=== PATIENT | female | born 1970 | race Two or more races ===

== ENCOUNTER 2016-12-25 19:53 | Emergency (ER) | payer MEDICAID ==
[~2016-12-25] VITALS: Ht 160 cm; Wt 68.0 kg
[2016-12-25 19:57] VITALS: BP 150/88
[2016-12-25] MEDS ORDERED: predniSONE 20 MG TABLET ONE (21:34)
[2016-12-25] MEDS ORDERED: predniSONE 20 MG TABLET PO ONE (22:00)
== END 2016-12-25 21:46 | disposition home or self-care (01) ==
LOC: ER 19:53
DX: T50.995A Adverse effect of other drugs, medicaments and biological substances, initial encounter (principal); I10 Essential (primary) hypertension; F41.9 Anxiety disorder, unspecified; Y92.9 Unspecified place or not applicable
CPT/HCPCS: 99283; A4606; J7512; Z7610

== ENCOUNTER 2017-08-11 16:37 | Emergency (ER) | payer MEDICAID ==
[~2017-08-11] VITALS: Ht 162.6 cm; Wt 72.6 kg
--- NOTE | 2017-08-11 16:45 | NUR ---
Pt states that she had gotten excited, feeling palpitations. Pt denies CP, SOB, dizziness, n/v, no other complaints, no distress noted. Pt placed on monitor.
[2017-08-11 17:01] VITALS: BP 142/69
--- NOTE | 2017-08-11 17:01 | NUR ---
Patient discharged to home in stable condition. Written and verbal after care instructions given. Patient verbalizes understanding of instruction.
== END 2017-08-11 17:11 | disposition home or self-care (01) ==
LOC: ER 16:38
DX: F44.5 Conversion disorder with seizures or convulsions (principal); F41.9 Anxiety disorder, unspecified; I10 Essential (primary) hypertension
CPT/HCPCS: 99283; A4606 ×2; Z7610 ×2

== ENCOUNTER 2017-09-30 19:46 | Emergency (ER) | payer MEDICAID ==
[~2017-09-30] VITALS: Ht 154.9 cm; Wt 71.7 kg
[2017-09-30 19:48] VITALS: BP 146/82
[2017-09-30] MEDS ORDERED: LORAZEPAM 0.5 MG TABLET PO ONE (20:00)
[2017-09-30] MEDS ORDERED: LORAZEPAM 1 MG TABLET ONE (20:31)
== END 2017-09-30 20:41 | disposition home or self-care (01) ==
LOC: ER 19:47
DX: F41.0 Panic disorder [episodic paroxysmal anxiety] (principal); I10 Essential (primary) hypertension
CPT/HCPCS: 99284; A4606; Z7610

== ENCOUNTER 2018-06-26 15:58 | Emergency (ER) | payer MEDICAID ==
[~2018-06-26] VITALS: Ht 154.9 cm; Wt 71.7 kg
--- NOTE | 2018-06-26 16:10 | NUR ---
PATIENT IS AAOX3, BIBRA 88 FROM HOME FOR SYNCOPAL EPISODE. PATIENT WAS HYPERVENTILATING AND NORMALLY HAPPENS DURING HER PERIOD PRIOR TO SYNCOPAL EPISODE. LACERATION TO POSTERIOR HEAD NOTED D/T FALL. RR IS EVEN AND UNLABORED WITH NAD NOTED. SKIN IS WARM AND DRY. PLACED ON THE MONITOR AND HOSPITAL GOWN. AWAITING MD FOR EVAL.
[2018-06-26 16:24] LABS: BASOPHILS # (AUTO) 0.1 /CMM (0.0-0.2); BASOPHILS % (AUTO) 1.9 % (0.0-2.0); EOSINOPHILS % (AUTO) 0.8 % (0.0-6.0); HEMATOCRIT 38 % (33-45); HEMOGLOBIN 12.5 g/dL (11.5-14.8); LYMPHOCYTES # (AUTO) 1.8 /CMM (0.8-4.8); LYMPHOCYTES % (AUTO) 23.8 % (20.0-44.0); MEAN CORPUSCULAR HEMOGLOBIN 29 PG (26.0-33.0); MEAN CORPUSCULAR HGB CONC 33 g/dl (31.0-36.0); MEAN CORPUSCULAR VOLUME 88 fL (82-100); MONOCYTES # (AUTO) 0.5 /CMM (0.1-1.30); NEUTROPHILS # (AUTO) 4.9 /CMM (1.8-8.9); NEUTROPHILS % (AUTO) 66.5 % (43.0-81.0); PLATELET COUNT (AUTO) 321 /CMM (150-450); RDW COEFFICIENT OF VARIATION 12.6 (11.5-15.0); RED BLOOD CELL COUNT(AUTO) 4.32 MIL/uL (4.0-5.2); WHITE BLOOD COUNT (AUTO) 7.4 K/uL (4.3-11.0)
[2018-06-26 16:31] LABS: CALCIUM, SERUM 9.3 mg/dL (8.5-10.1); CREATININE 0.9 mg/dL (0.6-1.3); POTASSIUM 3.5 mmol/L (3.5-5.1)
[2018-06-26] MEDS ORDERED: TDAP [DIPH/PERTUSSIS/TET] 0.5 ML VIAL IM ONE ×2 (17:30→17:34)
--- NOTE | 2018-06-26 17:40 | NUR ---
IV removed. Catheter intact and site benign. Pressure and 4x4 applied to site. No bleeding noted.
--- NOTE | 2018-06-26 18:14 | NUR ---
Patient discharged to home in stable condition. Written and verbal after care instructions given. Patient verbalizes understanding of instruction.IV removed. Catheter intact and site benign. Pressure and 4x4 applied to site. No bleeding noted.
[2018-06-26 18:17] VITALS: BP 134/75
== END 2018-06-26 18:18 | disposition home or self-care (01) ==
LOC: ER 16:00
DX: S01.01XA Laceration without foreign body of scalp, initial encounter (principal); R55 Syncope and collapse; I10 Essential (primary) hypertension; F41.9 Anxiety disorder, unspecified; W18.09XA Striking against other object with subsequent fall, initial encounter; Y93.89 Activity, other specified; Y92.89 Other specified places as the place of occurrence of the external cause; Y99.8 Other external cause status
CPT/HCPCS: 12002; 36415; 70450; 80048; 84703; 85025; 90471; 90715; 93005; 99285; A4606; A6402; Z7610

== ENCOUNTER 2018-07-31 16:04 | Inpatient (IN) ==
[~2018-07-31] VITALS: Ht 154.9 cm; Wt 74.4 kg
--- NOTE | 2018-07-31 16:10 | NUR ---
PT SAURABH S/P SUSPECTED SZ WITNESSED BY FAMILY. PER EMS, PT WAS POSTICTAL UPON ARRIVAL. NOW A/OX4, CALM, COOPERATIVE. NO LOSS OF CONTINENCE. SMALL LAC TO R EYEBROW NOTED, EDGES WELL-APPROXIMATED. RESP EVEN UNLABORED. SKIN WARM DRY. NO ORAL TRAUMA. NAD NOTED. IN ER BED 03 ON MONITOR.
--- NOTE | 2018-07-31 16:11 | NUR ---
SEZIURE PRECAUTIONS IMPLEMENTED AND SIDERAILS PADDED
[2018-07-31] MEDS ORDERED: IV NS 0.9% 1,000 ML BAG IV ONE (17:00)
--- NOTE | 2018-07-31 17:30 | NUR ---
NOTIFIED CINDY RODRIGEZ OF ORTHOSTATIC VS.
[2018-07-31 17:33] LABS: BASOPHILS % (AUTO) 0.5 % (0.0-2.0); EOSINOPHILS % (AUTO) 0.9 % (0.0-6.0); HEMATOCRIT 40 % (33-45); HEMOGLOBIN 13.3 g/dL (11.5-14.8); LYMPHOCYTES # (AUTO) 1.6 /CMM (0.8-4.8); LYMPHOCYTES % (AUTO) 16.9 % (20.0-44.0); MEAN CORPUSCULAR HGB CONC 33 g/dl (31.0-36.0); MEAN CORPUSCULAR VOLUME 88 fL (82-100); MONOCYTES # (AUTO) 0.5 /CMM (0.1-1.30); MONOCYTES % (AUTO) 5.4 % (2.0-12.0); NEUTROPHILS # (AUTO) 7.3 /CMM (1.8-8.9); NEUTROPHILS % (AUTO) 76.3 % (43.0-81.0); PLATELET COUNT (AUTO) 363 /CMM (150-450); RDW COEFFICIENT OF VARIATION 12.7 (11.5-15.0); RED BLOOD CELL COUNT(AUTO) 4.53 MIL/uL (4.0-5.2); WHITE BLOOD COUNT (AUTO) 9.5 K/uL (4.3-11.0)
[2018-07-31 17:38] LABS: APPEARANCE,URINE Clear (CLEAR); BILIRUBIN,URINE Negative (NEGATIVE); BLOOD, URINE Small Ery/uL (NEGATIVE); COLOR,URINE Yellow (YELLOW); KETONES,URINE Negative (NEGATIVE); LEUKOCYTE ESTERASE ,URINE Negative (NEGATIVE); NITRITE, URINE Negative (NEGATIVE); PH,URINE 5.5 (5.0-8.0); PROTEIN,URINE 30 mg/dl (NEGATIVE); UGLUCOSE Negative (NEGATIVE); UROBILINOGEN,URINE 0.2 EU/dL (0.2)
[2018-07-31 17:55] LABS: INR 0.89 (0.85-1.15)
[2018-07-31 18:03] LABS: CALCIUM, SERUM 9.2 mg/dL (8.5-10.1); CARBON DIOXIDE 29 mmol/L (21-32); CHLORIDE 99 mmol/L (98-107); CREATININE 0.9 mg/dL (0.6-1.3); GLUCOSE 143 mg/dL (74-106); POTASSIUM 3.5 mmol/L (3.5-5.1); SODIUM SERUM 137 mmol/L (136-145); TROPONIN I < 0.017 ng/mL (0.00-0.056); UREA NITROGEN, BLOOD 10 mg/dL (7-18)
[2018-07-31 18:08] LABS: ALANINE AMINOTRANSFERASE 34 U/L (12-78); ALBUMIN 4.2 g/dL (3.4-5.0); ALKALINE PHOSPHATASE 103 U/L (46-116); ASPARTATE AMINOTRANSFERASE 32 U/L (15-37); BILIRUBIN,DIRECT 0.1 mg/dL (0.0-0.2); BILIRUBIN,TOTAL 0.3 mg/dL (0.2-1.0)
[2018-07-31] MEDS ORDERED: LORAZEPAM INJ 2 MG/ML VIAL ONE (18:16)
[2018-07-31 18:18] LABS: BACTERIA,URINE Rare /HPF (None Seen); SQUAMOUS EPITHELIAL CELL,UR Few /HPF (None Seen); WBC,URINE 0-2 /HPF (0-3)
--- NOTE | 2018-07-31 18:20 | NUR ---
PT HAD WITNESSED SEIZURE BY LOBO GONZALEZ LASTING 35 SECONDS. HE STATES SHE WAS SHAKING AND THEN SLUMPED OVER. PT IMMEDIATELY PLACED ON NRB MASK. IV CATH WAS PULLED OUT. NEW IV ACCESS PLACED. CINDY RODRIGEZ AND DR ROWLAND CALLED TO BEDSIDE. ATIVAN 2MG IV ADMINISTERED PER ORDER. LOSS OF CONTINENCE OF URINE AND TRAUMA TO TONGUE NOTED. PT NOW DROWSY AND POSTICTAL. CLOSELY MONITORING WITH SEIZURE PRECAUTIONS IN PLACE.
[2018-07-31] MEDS ORDERED: LORAZEPAM INJ 2 MG/ML VIAL IV ONE (18:30)
--- NOTE | 2018-07-31 18:47 | NUR ---
PER RUTH, MED RECON NURSE, SAYS HE WILL BRING MED LIST LATER
--- NOTE | 2018-07-31 18:47 | NUR ---
RESTING QUIETLY, NO FURTHER SEIZURE ACTIVITY NOTED. AGATHA AT BEDSIDE
--- NOTE | 2018-07-31 19:10 | NUR ---
NOTED THAT 4MG ATIVAN WAS ADMINISTERED IV TO PT INSTEAD OF 2MG ORDERED. NOTIFIED NAVEEN YANCEY PHARMACIST, GENER GRINDER SET UP OPERATOR CENTERLESS, AND [facility] CLINICAL MARKETER. PT IS SEDATED BUT AROUSABLE TO LIGHT PAIN, RESPIRATIONS EVEN AND UNLABORED. REMAINS ON TELE MONITORING AND NRB MASK WITH STABLE VITALS. NO ADVERSE EFFECTS NOTED, WILL CONTINUE TO MONITOR CLOSELY.
[2018-07-31] MEDS ORDERED: PROPOFOL 100 ML ONE (19:33)
--- NOTE | 2018-07-31 19:41 | NUR ---
REPORT GIVEN TO EDGAR GONZALEZ FOR JENNIFER
[2018-07-31] MEDS ORDERED: LACTULOSE 10 G/15 ML UDC (PYXIS) ONE (20:04)
--- NOTE | 2018-07-31 20:14 | NUR ---
PT IS ASSIGNED TO [facility] [id number], DX: SEIZURE/SYNCOPE, AND ACCEPTING: YOHANA SHERIDAN NP.
[2018-07-31] MEDS ORDERED: LEVETIRACETAM (500MG) 500 MG/5 ML VIAL IV ONE (21:00)
[2018-07-31] MEDS ORDERED: HYDROCODONE/APAP 5/325MG 1 EACH TABLET PO PRN (21:00)
[2018-07-31] MEDS ORDERED: ONDANSETRON HCL/PF 4 MG/2 ML VIAL IVP PRN (21:00)
[2018-07-31] MEDS ORDERED: Z GUARD REMEDY 2 OZ OINT TP PRN (21:00)
[2018-07-31] MEDS ORDERED: ACETAMINOPHEN 325 MG TABLET PO PRN (21:00)
[2018-07-31] MEDS ORDERED: MAGNESIUM HYDROXIDE 30 ML UDC PO PRN (21:00)
[2018-07-31] MEDS ORDERED: LEVETIRACETAM (500MG) 1,000 MG in IV NS 0.9% 100 ML IV SCH (21:00)
[2018-07-31] MEDS ORDERED: MAG HYDROX/AL HYDROX/SIMETH 30 ML UDC PO PRN (21:00)
--- NOTE | 2018-07-31 21:15 | NUR ---
PT OFF TO CT
--- NOTE | 2018-07-31 21:22 | NUR ---
PT ALERT AND ORIENTED X4 ABLE TO MAKE NEEDS KNOWN. NO SEZIRUE SINCE SHIFT STARTED. WILL CONTINUE TO MONITOR FOR ANY CHANGES DURING THE SHIFT.
[2018-07-31 21:40] VITALS: BP 108/72
--- NOTE | 2018-07-31 21:45 | NUR ---
COMPUTATIONAL LINGUISTAGRICULTURAL CONSULTANT NOTES Admitted this 48 years old female to Tele [id number] under the service of Dr. Lovelace with admitting dx: seizure. Arrived in the unit via gurney assisted by 2 hospital staff. Able to ambulate with assistance, unsteady gait noted. Kept on bed comfortably. With O2 @ 4 LPM via NC, saturating at 98%. With patent peripheral IV line LAC G#18 with Keppra infusing well @ about 30cc level. Admission routine done. Initial skin assessment done, skin tact, bruise over L eye brow noted. Put on DVT pump as ordered. Patient is A/O X4, Angolan speaking, on regular diet as ordered. Belongings inventory done with MANUFACTURING ENGINEER ASSEMBLY, patient unable to sign. Kept HOB up, on aspiration precaution. On seizure precaution. Kept room cool and lights dimmed. Kept bed low and locked, alarm on. Call light within easy reach. Will continue to monitor accordingly.
[2018-08-01] VITALS: BP 111/70
[2018-08-01 04:41] VITALS: BP 107/59
--- NOTE | 2018-08-01 06:34 | NUR ---
ENGINEERING DOCUMENT CONTROL CLERK CLOSING NOTES Patient asleep on Silva's position on bed with patent peripheral IV line RAC G#18, SL. With O2 inhalation via NC @ 3LPM, tolerated well. On tele monitoring - SR 85. With DVT pump attached to BLE. No episode of seizure within the shift. Still with dizziness, able to ambulate to toilet but needs 1-person assist. Bedside commode provided for safety. Voided x2, no BM. Asleep throughout the shift, no complaints made. On aspiration and seizure precaution, kept HOB elevated. Dialy weight as ordered - 164lbs. Kept on bed rest, with diaper on. For PT eval today. All needs attended. Kept bed low and locked in lowest position, alarm on. Endorsed to the next shift.
--- NOTE | 2018-08-01 07:30 | NUR ---
STEAM AND GAS TURBINE ASSEMBLER NOTES PT IN BED, ASLEEP, EASY TO AROUSE, ALERT AND ORIENTED, DENIES PAIN, NOT IN DISTRESS, RESPIRATIONS NORMAL, CALL LIGHT WITHIN REACH, SEIZURE PRECAUTIONS OBSERVED, SIDERAILS PADDED, KEPT COMFORTABLE.
[2018-08-01 07:41] LABS: BASOPHILS # (AUTO) 0.1 /CMM (0.0-0.2); BASOPHILS % (AUTO) 0.8 % (0.0-2.0); EOSINOPHILS % (AUTO) 0.9 % (0.0-6.0); HEMATOCRIT 38 % (33-45); HEMOGLOBIN 12.7 g/dL (11.5-14.8); LYMPHOCYTES # (AUTO) 1.9 /CMM (0.8-4.8); LYMPHOCYTES % (AUTO) 21.3 % (20.0-44.0); MEAN CORPUSCULAR HGB CONC 34 g/dl (31.0-36.0); MEAN CORPUSCULAR VOLUME 90 fL (82-100); MONOCYTES # (AUTO) 0.6 /CMM (0.1-1.30); MONOCYTES % (AUTO) 6.8 % (2.0-12.0); NEUTROPHILS # (AUTO) 6.2 /CMM (1.8-8.9); NEUTROPHILS % (AUTO) 70.2 % (43.0-81.0); PLATELET COUNT (AUTO) 311 /CMM (150-450); RDW COEFFICIENT OF VARIATION 13.8 (11.5-15.0); RED BLOOD CELL COUNT(AUTO) 4.17 MIL/uL (4.0-5.2); WHITE BLOOD COUNT (AUTO) 8.9 K/uL (4.3-11.0)
[2018-08-01 07:54] LABS: CALCIUM, SERUM 8.2 mg/dL (8.5-10.1); CREATININE 0.7 mg/dL (0.6-1.3); MAGNESIUM 2.1 mg/dL (1.8-2.4); PHOSPHORUS 3.4 mg/dL (2.5-4.9); POTASSIUM 3.9 mmol/L (3.5-5.1)
[2018-08-01 07:58] LABS: THYROID STIMULATING HORMONE 2.531 uIU/mL (0.358-3.74)
[2018-08-01 08:00] VITALS: BP_SYST 100; BP_SYST 93; BP_DIAS 56; BP_DIAS 62
[2018-08-01] MEDS ORDERED: SERT100T12 PO (09:39)
[2018-08-01] MEDS ORDERED: AMLO5TAB7 PO (09:39)
--- NOTE | 2018-08-01 13:00 | NUR ---
RN MS NOTES PT IN BED, RESTING, AWAKE, ALERT AND ORIENTED, NO COMPLAINT AT THIS TIME, SEEN BY PHYSICAL THERAPIST, ABLE TO WALK, TOLERATED WELL, ASSISTED TO BATHROOM NEEDED, PT SEEN BY DR. DENTON, CALL LIGHT PLACED WITHIN REACH.
[2018-08-01] MEDS: OXCARBAZEPINE 150 MG TABLET PO SCH ×2 (14:26→21:07)
[2018-08-01 16:00] VITALS: BP 117/78
--- NOTE | 2018-08-01 18:43 | NUR ---
RN MS NOTES PT IN BED, RESTING, DENIES PAIN OR ANY DISCOMFORT, NOT IN DISTRESS, CALL LIGHT WITHIN REACH, ABLE TO WALK TO THE BATHROOM WITH STEADY GAIT WITH STANDBY ASSISTANCE, TOLERATING CURRENT DIET WELL, NEEDS ATTENDED.
--- NOTE | 2018-08-01 19:44 | NUR ---
RN MS OPENING NOTES RECEIVED PATIENT IN BED AWAKE. ALERT AND ORIENTED X4, VERBALLY RESPONSIVE, ABLE TO MAKE NEEDS KNOWN. BREATHING EVEN AND UNLABORED. NO SOB NOTED - TOLERATING ROOM AIR. NO COMPLAINTS OF PAIN OR DISCOMFORT. NO FACIAL GRIMACING. IV ACCESS ON RIGHT AC #18 INTACT AND PATENT. SKIN DRY AND WARM TO TOUCH. AFEBRILE. ALL OTHER NEEDS ATTENDED TO. SAFETY MEASURES IN PLACE. SIDE RAILS PADDED. CALL LIGHT WITHIN REACH. WILL CONTINUE TO MONITOR.
[2018-08-01 20:00] VITALS: BP 118/67
[2018-08-01] MEDS ORDERED: ATORVASTATIN 10 MG TABLET PO SCH (22:00)
--- NOTE | 2018-08-02 06:44 | NUR ---
RN MS CLOSING NOTES PATIENT IN BED AWAKE. NO ACUTE CHANGES THROUGHOUT SHIFT. REMAINED STABLE.. BREATHING EVEN AND UNLABORED. NO SOB NOTED - TOLERATING ROOM AIR. NO COMPLAINTS OF PAIN OR DISCOMFORT. NO FACIAL GRIMACING. IV ACCESS ON RIGHT AC #18 INTACT AND PATENT. SKIN DRY AND WARM TO TOUCH. AFEBRILE. ALL OTHER NEEDS ATTENDED TO. SAFETY MEASURES IN PLACE. SIDE RAILS PADDED. CALL LIGHT WITHIN REACH. WILL ENDORSE TO ONCOMING NURSE FOR CONTINUITY OF CARE.
--- NOTE | 2018-08-02 07:41 | NUR ---
MS RN OPENING NOTES RECEIVED PATIENT IN STABLE CONDITION. IN NO APPARENT DISTRESS. BEDSIDE RAILS ARE UPX2. BED IS LOCKED AND LOWERED. CALL LIGHT IS WITHIN REACH. IV LINE IS INTACT AND PATENT. WILL CONTINUE TO MONITOR PATIENT.
[2018-08-02 08:00] VITALS: BP 104/65
[2018-08-02] MEDS: OXCARBAZEPINE 150 MG TABLET PO SCH (08:00)
--- NOTE | 2018-08-02 13:15 | NUR ---
PATIENT DISCHARGED IN STABLE CONDITION. IN NO APPARENT DISTRESS. IV LINE WAS REMOVED. ID BAND WAS REMOVED. EXITCARE SIGNED AND PROVIDED TO THE PATIENT. PRESCRIPTIONS PROVIDED TO THE PATIENT. ALL NEEDS WERE MET. PATIENT WAS ESCORTED OUT OF THE FACILITY VIA WHEELCHAIR BY ELOISE SANCHEZ
== END 2018-08-02 13:21 | disposition home or self-care (01) | DRG 53 ==
LOC: ER 16:05 → TELE 21:22 → MED 08-01 09:01
PROVIDERS: ADMIT Nurse Practitioner Acute Care; ATTEND Nurse Practitioner Acute Care
DX: G40.89 Other seizures (principal); E78.5 Hyperlipidemia, unspecified; F41.9 Anxiety disorder, unspecified; S00.12XA Contusion of left eyelid and periocular area, initial encounter; W18.30XA Fall on same level, unspecified, initial encounter; R73.9 Hyperglycemia, unspecified; Y92.89 Other specified places as the place of occurrence of the external cause
CPT/HCPCS: 36415; 70450-TC; 71045-TC; 80048-TC; 80061-TC; 80076-TC; 80305; 81000-TC; 82962-TC; 83735-TC; 84100-TC; 84443-TC; 84484-TC; 84703-TC; 85025-TC; 85730-TC; 87081-TC; A4606; G0378; J1953; J2060; J3490; J7030; Z7610

== ENCOUNTER 2019-11-11 17:51 | Emergency (ER) | payer SELFPAY ==
[~2019-11-11] VITALS: Ht 154.9 cm; Wt 70.8 kg
[~2019-11-11 17:51] MED LIST: SERT100T12 PO
[2019-11-11] MEDS ORDERED: ONDANSETRON HCL/PF 4 MG/2 ML VIAL IVP ONE (18:00)
[2019-11-11] MEDS ORDERED: MECLIZINE HCL 12.5 MG TABLET PO ONE (18:00)
[2019-11-11] MEDS ORDERED: IV NS 0.9% 1,000 ML BAG IV ONE (18:00)
--- NOTE | 2019-11-11 18:00 | NUR ---
BIB RA 88 FROM HOME, C/O DIZZINESS,UNSTEADY GAIT. PATIENT A/OX4, BREATHING EVEN AND UNLABORED, NO SOB NOTED, NEEDS ATTENDED, CHANGED INTO GOWN, ATTACHED TO THE SECTION BEAMER.
[2019-11-11 18:20] LABS: BASOPHILS # (AUTO) 0.1 /CMM (0.0-0.2); BASOPHILS % (AUTO) 1.2 % (0.0-2.0); EOSINOPHILS % (AUTO) 0.7 % (0.0-6.0); HEMATOCRIT 40 % (33-45); HEMOGLOBIN 13.5 g/dL (11.5-14.8); LYMPHOCYTES # (AUTO) 2.1 /CMM (0.8-4.8); LYMPHOCYTES % (AUTO) 30.1 % (20.0-44.0); MEAN CORPUSCULAR HGB CONC 34 g/dl (31.0-36.0); MEAN CORPUSCULAR VOLUME 91 fL (82-100); MONOCYTES # (AUTO) 0.4 /CMM (0.1-1.30); MONOCYTES % (AUTO) 6.5 % (2.0-12.0); NEUTROPHILS # (AUTO) 4.2 /CMM (1.8-8.9); NEUTROPHILS % (AUTO) 61.5 % (43.0-81.0); PLATELET COUNT (AUTO) 333 /CMM (150-450); RED BLOOD CELL COUNT(AUTO) 4.43 MIL/uL (4.0-5.2); WHITE BLOOD COUNT (AUTO) 6.9 K/uL (4.3-11.0)
[2019-11-11] MEDS ORDERED: MECLIZINE HCL 25 MG TABLET ONE (18:20)
[2019-11-11] MEDS ORDERED: ONDANSETRON HCL/PF 4 MG/2 ML VIAL ONE (18:20)
[2019-11-11 18:27] LABS: CALCIUM, SERUM 9.9 mg/dL (8.5-10.1); CREATININE 0.8 mg/dL (0.6-1.3); POTASSIUM 3.6 mmol/L (3.5-5.1)
[2019-11-11 18:33] LABS: ALBUMIN 4.5 g/dL (3.4-5.0); BILIRUBIN,DIRECT 0.1 mg/dL (0.0-0.2); BILIRUBIN,TOTAL 0.5 mg/dL (0.2-1.0); TOTAL PROTEIN, SERUM 7.8 g/dL (6.4-8.2)
[2019-11-11 19:33] LABS: APPEARANCE,URINE Clear (CLEAR); BILIRUBIN,URINE Negative (NEGATIVE); BLOOD, URINE Trace-intact Ery/uL (NEGATIVE); COLOR,URINE Yellow (YELLOW); KETONES,URINE 40 (NEGATIVE); LEUKOCYTE ESTERASE ,URINE Negative (NEGATIVE); NITRITE, URINE Negative (NEGATIVE); PROTEIN,URINE Negative (NEGATIVE); UGLUCOSE Negative (NEGATIVE); UROBILINOGEN,URINE 0.2 EU/dL (0.2)
[2019-11-11 19:42] LABS: BACTERIA,URINE Few /HPF (None Seen); SQUAMOUS EPITHELIAL CELL,UR Few /HPF (None Seen); WBC,URINE 0-2 /HPF (0-3)
--- NOTE | 2019-11-11 20:02 | NUR ---
IV removed. Catheter intact and site benign. Pressure and 4x4 applied to site. No bleeding noted. Patient discharged to home in stable condition. Written and verbal after care instructions given. Patient verbalizes understanding of instruction.
[2019-11-11 20:03] VITALS: BP 133/76
== END 2019-11-11 20:11 | disposition home or self-care (01) ==
LOC: ER 17:52
DX: S00.03XA Contusion of scalp, initial encounter (principal); E86.0 Dehydration; R42 Dizziness and giddiness; F41.9 Anxiety disorder, unspecified; Z88.8 Allergy status to other drugs, medicaments and biological substances; Z79.899 Other long term (current) drug therapy; X58.XXXA Exposure to other specified factors, initial encounter; Y93.89 Activity, other specified; Y92.89 Other specified places as the place of occurrence of the external cause; Y99.8 Other external cause status
CPT/HCPCS: 36415; 70450; 71045; 80048; 80076; 81001; 85025; 93005; 96361; 96374; 99284; J2405; J7030; J8597; 81000-TC

== ENCOUNTER 2021-09-04 18:14 | Emergency (ER) | payer MEDICAID, BC ==
[~2021-09-04] VITALS: Ht 157.5 cm; Wt 59.9 kg
--- NOTE | 2021-09-04 18:52 | NUR ---
CHEST DISCOMFORT FIRST STARTED AT 1630 WHILE AT THE MALL, EMS RESPONDED BUT STATES FELT BETTER. NOW WANTS TO BE CHECK. ANXIOUS SPECIAL DELIVERY MAIL CARRIER. THE PATIENT DENIES PAIN AT THIS TIME. IN ROOM AIR AND DENIES SOB. RESPIRATION REGULAR AND UNLABORED. ATTACHED TO THE MONITOR. WARM BLANKET PROVIDED FOR COMFORT. WILL CONTINUE TO MONITOR THE PATIENT.
--- NOTE | 2021-09-04 19:01 | NUR ---
STARTED IV LINE, BLOOD SPECIMEN COLLECTED AND SENT TO THE LAB.
[2021-09-04] MEDS: ASPIRIN 81 MG TAB.CHEW PO ONE (19:02)
[2021-09-04] MEDS ORDERED: ASPIRIN 81 MG TAB.CHEW ONE (19:03)
[2021-09-04 19:58] LABS: BASOPHILS # (AUTO) 0.1 K/uL (0.0-0.2); EOSINOPHILS % (AUTO) 0.9 % (0.0-6.0); HEMATOCRIT 37 % (33-45); HEMOGLOBIN 12.4 g/dL (11.5-14.8); LYMPHOCYTES # (AUTO) 2.1 K/uL (0.8-4.8); MEAN CORPUSCULAR HGB CONC 34 g/dl (31.0-36.0); MEAN CORPUSCULAR VOLUME 93 fL (82-100); MONOCYTES # (AUTO) 0.4 K/uL (0.1-1.30); MONOCYTES % (AUTO) 6.9 % (2.0-12.0); NEUTROPHILS % (AUTO) 53.2 % (43.0-81.0); PLATELET COUNT (AUTO) 281 K/uL (150-450); RED BLOOD CELL COUNT(AUTO) 3.92 MIL/uL (4.0-5.2); WHITE BLOOD COUNT (AUTO) 5.6 K/uL (4.3-11.0)
[2021-09-04 20:11] LABS: CALCIUM, SERUM 8.4 mg/dL (8.5-10.1); CARBON DIOXIDE 24 mmol/L (21-32); CHLORIDE 107 mmol/L (98-107); GLUCOSE 179 mg/dL (74-106); POTASSIUM 3.1 mmol/L (3.5-5.1); SODIUM SERUM 142 mmol/L (136-145); UREA NITROGEN, BLOOD 14 mg/dL (7-18)
[2021-09-04] MEDS ORDERED: POTASSIUM CHLORIDE 20 MEQ TAB.PRT.SR PO ONE (20:33)
[2021-09-04] MEDS: POTASSIUM CHLORIDE 20 MEQ TAB.PRT.SR PO ONE (20:35)
[2021-09-04 20:46] VITALS: BP 119/61
== END 2021-09-04 20:48 | disposition home or self-care (01) ==
LOC: ER 18:24
DX: R07.89 Other chest pain (principal); F41.9 Anxiety disorder, unspecified; I10 Essential (primary) hypertension; G40.909 Epilepsy, unspecified, not intractable, without status epilepticus; Z88.8 Allergy status to other drugs, medicaments and biological substances; Z79.899 Other long term (current) drug therapy
CPT/HCPCS: 36415; 71045-TC; 80048-TC; 84484-TC; 85025-TC

== ENCOUNTER 2021-11-19 22:15 | Emergency (ER) | payer BC, OTHER ==
[~2021-11-19] VITALS: Ht 160 cm; Wt 63.5 kg
--- NOTE | 2021-11-19 22:19 | NUR ---
BIBSELF C/O TROUBLE BREATHING Hx OF PANIC ATTACKS. PT SATTING 100% ON R/A. PT A/OX4. CONNECTED PT TO POX AND MONITOR.
[2021-11-19] MEDS ORDERED: LORAZEPAM INJ 2 MG/ML VIAL ONE (22:20)
--- NOTE | 2021-11-19 22:26 | NUR ---
EMT AT BEDSIDE FOR EKG
[2021-11-19] MEDS ORDERED: LORAZEPAM INJ 2 MG/ML VIAL IM ONE (22:30)
[2021-11-19] MEDS ORDERED: LORA-258 PO (23:00)
--- NOTE | 2021-11-19 23:41 | NUR ---
Patient discharged to home in stable condition. Written and verbal after care instructions given. Patient verbalizes understanding of instruction.
[2021-11-19 23:45] VITALS: BP 137/73
== END 2021-11-19 23:45 | disposition home or self-care (01) ==
LOC: ER 22:23
DX: F41.0 Panic disorder [episodic paroxysmal anxiety] (principal); Z88.8 Allergy status to other drugs, medicaments and biological substances; Z79.899 Other long term (current) drug therapy
CPT/HCPCS: 93005; 96372; 99283; J2060

== ENCOUNTER 2022-06-09 18:54 | Inpatient (IN) | payer BC, OTHER ==
[~2022-06-09] VITALS: Ht 154.9 cm; Wt 59.0 kg
[~2022-06-09 18:54] MED LIST changes: +LORA-258 PO
--- NOTE | 2022-06-09 18:54 | NUR ---
BIBFAMILY C/O SLURRED SPEECH AND UNSTEADY GAIT 1HR DIRECTOR DATA ARCHITECTURE, LKW THIS MORNING. BROUGHT IN VIA WHEELCHAIR, PLACED ON BED, SLOW TO MOVE WITH ASSISTANCE, SLURRED SPEECH NOTED, UNABLE TO SWALLOW VERBALIZED BY THE PATIENT, BREATHING EVEN AND UNLABORED SATURATING AT 98%
[2022-06-09] MEDS ORDERED: IOHEXOL-350 100 ML VIAL IV ONE (19:12)
--- NOTE | 2022-06-09 19:21 | NUR ---
pt returned from ct via [facility]
[2022-06-09 19:23] LABS: CALCIUM, SERUM 8.1 mg/dL (8.5-10.1); CARBON DIOXIDE 21 mmol/L (21-32); GLUCOSE 172 mg/dL (74-106); POTASSIUM 3.6 mmol/L (3.5-5.1); SODIUM SERUM 134 mmol/L (136-145)
[2022-06-09 19:29] LABS: ALANINE AMINOTRANSFERASE 26 U/L (12-78); ALBUMIN 4.3 g/dL (3.4-5.0); ALKALINE PHOSPHATASE 82 U/L (46-116); ASPARTATE AMINOTRANSFERASE 22 U/L (15-37); BILIRUBIN,DIRECT 0.1 mg/dL (0.0-0.2); BILIRUBIN,TOTAL 0.4 mg/dL (0.2-1.0); TOTAL PROTEIN, SERUM 7.7 g/dL (6.4-8.2)
[2022-06-09 19:37] LABS: CHLORIDE 99 mmol/L (98-107); CREATININE 1.3 mg/dL (0.6-1.3); UREA NITROGEN, BLOOD 16 mg/dL (7-18)
[2022-06-09] MEDS ORDERED: diphenhydrAMINE HCL 50 MG/ML VIAL ONE (19:39)
--- NOTE | 2022-06-09 19:55 | NUR ---
DOCTOR ON PHONE WITH RADIOLOGY
[2022-06-09 19:56] LABS: BASOPHILS % (AUTO) 0.5 % (0.0-2.0); HEMATOCRIT 35 % (33-45); HEMOGLOBIN 11.7 g/dL (11.5-14.8); LYMPHOCYTES % (AUTO) 15.7 % (20.0-44.0); MEAN CORPUSCULAR HGB CONC 34 g/dl (31.0-36.0); MEAN CORPUSCULAR VOLUME 89 fL (82-100); MONOCYTES # (AUTO) 0.8 K/uL (0.1-1.30); NEUTROPHILS # (AUTO) 4.4 K/uL (1.8-8.9); NEUTROPHILS % (AUTO) 70.8 % (43.0-81.0); PLATELET COUNT (AUTO) 216 K/uL (150-450); RED BLOOD CELL COUNT(AUTO) 3.87 MIL/uL (4.0-5.2); WHITE BLOOD COUNT (AUTO) 6.2 K/uL (4.3-11.0)
[2022-06-09] MEDS ORDERED: diphenhydrAMINE HCL 50 MG/ML VIAL IV ONE (20:00)
--- NOTE | 2022-06-09 20:24 | NUR ---
NEUROLOGIST ON THE PHONE WITH
[2022-06-09] MEDS ORDERED: ASPIRIN 81 MG TAB.CHEW PO ONE (20:30)
--- NOTE | 2022-06-09 20:32 | NUR ---
SWAB FOR COVID19 SENT TO LAB
[2022-06-09] MEDS ORDERED: ASPIRIN 81 MG TAB.CHEW ONE (20:45)
[2022-06-10] MEDS ORDERED: hydrALAZINE HCL IV 20 MG VIAL IV PRN (01:00)
[2022-06-10] MEDS ORDERED: DEXTROSE 50%-WATER 50 ML DISP.SYRIN IV PRN (01:30)
[2022-06-10 01:54] LABS: THYROID STIMULATING HORMONE 0.641 uIU/mL (0.358-3.74)
--- NOTE | 2022-06-10 02:39 | NUR ---
REPORT GIVEN TO JORDY
--- NOTE | 2022-06-10 03:08 | NUR ---
PT TRANSPORTED TO ROOM 107 ON CARDIAC PER ACLS
--- NOTE | 2022-06-10 03:10 | NUR ---
TELE RECEIVED RN NOTE RECEIVED PATIENT FROM ER VIA MACHELLE. PATIENT ABLE TO AMBULATE WITH ASSIST. A/O X4, CUBAN SPEAKING. IPAD USED FOR TRANSLATION #[id number]. PATIENT ABLE TO ANSWER INITIAL ASSESSMENT QUESTIONS AND PAST MEDICAL HISTORY. PATIENT ADVISED FULL CODE STATUS. IV ACCESS LAC #18 S/L. PATIENT ADVISED SHE WOULD LIKE TO STAY IN OWN CLOTHES. ALL SAFETY MEASURES IN PLACE, BED LOCKED IN LOWEST POSITION WITH SIDERAILS UP X 2, CALL LIGHT WITHIN REACH. BED ALARM ON. WILL CONTINUE TO MONITOR AND REASSESS PATIENT FOR ANY CHANGES DURING SHIFT.
[2022-06-10 04:00] VITALS: BP 110/64
[2022-06-10] MEDS: ENOXAPARIN SODIUM 40 MG/0.4 ML DISP.SYRIN SQ SCH ×2 (05:01→20:21)
--- NOTE | 2022-06-10 07:10 | NUR ---
RACK WORKER CLOSING NOTE PATIENT IN BED ON RA, TOLERATING WELL. PATIENT ABLE TO AMBULATE WITH ASSIST. A/O X4, HEBREW SPEAKING. IV ACCESS LAC #18 S/L. ALL DUE MEDS GIVEN. PATIENT ABLE TO MAKE NEEDS KNOWN. ALL SAFETY MEASURES IN PLACE, BED LOCKED IN LOWEST POSITION WITH SIDERAILS UP X 2, CALL LIGHT WITHIN REACH. BED ALARM ON. WILL ENDORSE TO MORNING SHIFT FOR CONTINUE OF CARE.
--- NOTE | 2022-06-10 07:30 | NUR ---
OPENING NOTE PATIENT IN BED ON RA, TOLERATING WELL. PATIENT ABLE TO AMBULATE WITH ASSIST. A/O X4, LAO SPEAKING. IV ACCESS LAC #18 S/L. PATIENT ABLE TO MAKE NEEDS KNOWN. ALL SAFETY MEASURES IN PLACE, BED LOCKED IN LOWEST POSITION WITH SIDE RAILS UP X 2, CALL LIGHT WITHIN REACH. BED ALARM ON. WILL CONTINUE THE CARE DURING THE SHIFT.
[2022-06-10] MEDS ORDERED: LORA-259 PO (07:33)
[2022-06-10] MEDS ORDERED: TOPI100T38 PO (07:33)
[2022-06-10] MEDS ORDERED: FOLI0.8T3 PO (07:33)
[2022-06-10] MEDS ORDERED: LACO150T2 PO (07:33)
[2022-06-10] MEDS ORDERED: ESCI10TA PO (07:33)
[2022-06-10] MEDS ORDERED: AMLO-212 PO (07:33)
[2022-06-10] MEDS ORDERED: CLOB10TA3 PO (07:33)
[2022-06-10] MEDS: BLOOD SUGAR DIAGNOSTIC 1 EACH STRIP IN SCH ×4 (07:44→21:37)
[2022-06-10 08:00] VITALS: BP 115/72
[2022-06-10] MEDS: PANTOPRAZOLE 40 MG TABLET.DR PO SCH (08:01)
[2022-06-10] MEDS ORDERED: ASPIRIN EC 325 MG TABLET.DR PO SCH (09:00)
[2022-06-10 12:00] VITALS: BP 118/74
[2022-06-10 16:00] VITALS: BP 121/69
[2022-06-10] MEDS ORDERED: LORAZEPAM 0.5 MG TABLET PO PRN (17:30)
[2022-06-10] MEDS ORDERED: LORAZEPAM 1 MG TABLET PO PRN (17:30)
--- NOTE | 2022-06-10 19:00 | NUR ---
CLOSING NOTE PATIENT IN BED ON RA, TOLERATING WELL. PATIENT ABLE TO AMBULATE WITH ASSIST. A/O X4, MALAGASY SPEAKING. IV ACCESS LAC #18 S/L. ALL DUE MEDS GIVEN. PATIENT ABLE TO MAKE NEEDS KNOWN. ALL SAFETY MEASURES IN PLACE, BED LOCKED IN LOWEST POSITION WITH SIDERAILS UP X 2, CALL LIGHT WITHIN REACH. BED ALARM ON. WILL ENDORSE TO INTERNET RESEARCHER FOR CONTINUE OF CARE.
--- NOTE | 2022-06-10 19:10 | NUR ---
RN NOTES RECEIVED PT FOR CONTINUITY OF CARE. PATIENT A/OX4 IN NO S/SX OF ACUTE DISTRESS AT THIS TIME; CURRENTLY ON ROOM AIR ; WITH 02 SAT >95% AT THIS TIME.WITH IV ACCESS ON L AC#18 PATENT, INTACT AND FLUSHING WELL. ON CCHO DIET. WILL ENSURE SAFETY MEASURES WITHIN THE SHIFT. PATIENT BED ALARM IS ON. HEAD OF BED ELEVATED. BED IS LOCKED, IN LOWEST POSITION AND SIDE RAILS UP. CALL LIGHT WITHIN REACH OF THE PATIENT. APPLICABLE ISOLATION PRECAUTIONS IN PLACE. WILL CONTINUE TO MONITOR AND REASSESS FOR ANY CHANGES AND WILL CARRY OUT ANY ONGOING AND ACTIVE MD ORDER.
[2022-06-10 20:00] VITALS: BP 132/66
--- NOTE | 2022-06-10 20:18 | NUR ---
RN NOTES NOTED PT'S TEMP IS AT 101.6@2000; PRN MEDICATION GIVEN AND COOLING MEASURES RENDERED. STAFF REGISTERED NURSE MADE AWARE. WILL CONTINUE TO MONITOR AND ASSESS THROUGHOUT THE SHIFT.
[2022-06-10] MEDS: ACETAMINOPHEN 325 MG TABLET PO PRN (20:20)
[2022-06-10] MEDS: SIMVASTATIN 20 MG TABLET PO SCH (21:34)
[2022-06-10] MEDS: INSULIN REGULAR, HUMAN 100 UNIT/ML 3 ML VIAL SQ PRN (21:37)
[2022-06-11] VITALS: BP 108/68
[2022-06-11] MEDS: ACETAMINOPHEN 325 MG TABLET PO PRN ×2 (00:25→09:19)
[2022-06-11 04:00] VITALS: BP 127/68
--- NOTE | 2022-06-11 04:00 | NUR ---
RN NOTES PATIENT REMAINED TO BE IN NO SIGNS OF ACUTE RESPIRATORY DISTRESS , SAFE ENVIRONMENT MAINTAINED FOR PT. AM PATIENT CARE ASSISTANCE RENDERED. WILL CONTINUE TO MONITOR AND REASSESS FOR ANY CHANGES THROUGHOUT THE SHIFT.
--- NOTE | 2022-06-11 06:27 | NUR ---
RN CLOSING NOTE: PATIENT REMAINS IN ROOM IN NO SIGNS OF RESPIRATORY DISTRESS, PATIENT STILL ON ROOM AIR;TOLERATING WELL SATURATING @ >95% SP02. SAFETY MEASURES IMPLEMENTED, BED IN LOWEST POSITION, LOCKED, SIDE RAILS UP, CALL LIGHT WITHIN REACH. ALL NEEDS AND ORDERS ADDRESSED DURING THE SHIFT. IV ACCESS MAINTAINED INTACT, SECURED AND FLUSHING WELL. ALL DUE MEDS GIVEN ORDERED & SCHEDULED ; PATIENT TOLERATED WELL. ISO PREC MAINTAINED. PATIENT KEPT CLEAN AND COMFORTABLE WITHIN THE SHIFT. PATIENT ENDORSED TO INCOMING SHIFT RN WITH STABLE VITAL SIGN AND FOR CONTINUITY OF CARE.
--- NOTE | 2022-06-11 07:15 | NUR ---
RAIL WALKER OPENING NOTES: RECEIVED PATIENT IN BED, AWAKE, ALERT, ORIENTED X 4. NO RESPIRATORY DISTRESS NOTED. BREATHING EVEN AND UNLABORED. ON RA WITH OXYGEN SATURATION OF 100%. SR ON TELE MONITOR WITH HR OF 74. SALINE LOCK ON LEFT ANTECUBITAL AREA, PATENT, NO S/S OF INFILTRATION, FLUSHING WELL. NO DRIFTING NOTED ON BILATERAL ARMS AND LOWER LEGS, BILATERAL HANDS WITH GOOD HAND DUPLEX TRIMMER, FACE EVEN AND SYMMETRICAL, NEURO CHECK DONE ORDERED. BED LOCKED AND IN LOWEST POSITION, CALL LIGHT WITHIN REACH AND INSTRUCTED TO CALL FOR ASSISTANCE WHEN NEEDED. WILL CONTINUE TO MONITOR PATIENT THROUGHOUT SHIFT.
[2022-06-11 08:00] VITALS: BP 93/61
[2022-06-11] MEDS: BLOOD SUGAR DIAGNOSTIC 1 EACH STRIP IN SCH ×4 (08:00→22:18)
[2022-06-11] MEDS: PANTOPRAZOLE 40 MG TABLET.DR PO SCH (08:01)
[2022-06-11] MEDS ORDERED: AMLODIPINE BESYLATE 5 MG TABLET PO SCH (09:00)
[2022-06-11] MEDS ORDERED: ASPIRIN EC 325 MG TABLET.DR PO SCH (09:00)
[2022-06-11] MEDS: SERTRALINE HCL 50 MG TABLET PO SCH (09:18)
[2022-06-11] MEDS: ESCITALOPRAM OXALATE (10 MG) 10 MG TABLET PO SCH (09:18)
[2022-06-11] MEDS: FOLIC ACID 1 MG TABLET PO SCH (09:19)
[2022-06-11] MEDS: LACOSAMIDE 50 MG TABLET PO SCH ×2 (09:19→16:52)
[2022-06-11] MEDS: TOPIRAMATE 100 MG TABLET PO SCH ×2 (09:20→16:52)
[2022-06-11] MEDS: ASPIRIN EC 81 MG TABLET.DR PO SCH (09:38)
[2022-06-11 11:26] LABS: BASOPHILS % (AUTO) 0.7 % (0.0-2.0); EOSINOPHILS % (AUTO) 0.1 % (0.0-6.0); HEMATOCRIT 36 % (33-45); LYMPHOCYTES # (AUTO) 0.9 K/uL (0.8-4.8); LYMPHOCYTES % (AUTO) 34.2 % (20.0-44.0); MEAN CORPUSCULAR HGB CONC 33 g/dl (31.0-36.0); MEAN CORPUSCULAR VOLUME 90 fL (82-100); MONOCYTES # (AUTO) 0.4 K/uL (0.1-1.30); MONOCYTES % (AUTO) 15.9 % (2.0-12.0); NEUTROPHILS # (AUTO) 1.3 K/uL (1.8-8.9); NEUTROPHILS % (AUTO) 49.1 % (43.0-81.0); PLATELET COUNT (AUTO) 201 K/uL (150-450); RED BLOOD CELL COUNT(AUTO) 4.05 MIL/uL (4.0-5.2); WHITE BLOOD COUNT (AUTO) 2.6 K/uL (4.3-11.0)
[2022-06-11 11:40] LABS: CALCIUM, SERUM 8.3 mg/dL (8.5-10.1); CREATININE 0.7 mg/dL (0.6-1.3); POTASSIUM 3.3 mmol/L (3.5-5.1)
[2022-06-11 12:00] VITALS: BP 93/55
[2022-06-11 12:32] LABS: BAND % (MANUAL) 7 % (0.0-5.0); LYMPHOCYTES % (MANUAL) 35 % (16-48); MONOCYTES % (MANUAL) 16 % (0-11.0); NEUTROPHILS % (MANUAL) 42 (42-76)
[2022-06-11] MEDS ORDERED: GADOTERATE MEGLUMINE 10 MMOL/20 ML VIAL IV ONE (13:01)
[2022-06-11 16:00] VITALS: BP 96/57
[2022-06-11] MEDS ORDERED: KEY,NONCONTROL,TO KEEP IN PYXI 1 EA MC ONE (16:44)
[2022-06-11] MEDS: CLOBAZAM 10 MG PO SCH (16:46)
--- NOTE | 2022-06-11 16:50 | NUR ---
SALES AND MANAGEMENT TRAINEE CLOSING NOTES: PATIENT IN BED AWAKE, ALERT, ORIENTED X 4. NO SON NOTED, BREATHING EVEN AND UNLABORED. SALINE LOCK INTACT ON LEFT AC, FLUSHES WELL. ON SR AT TELE MONITOR WITH HR OF 77. NO C./O PAIN THE ENTIRE SHIFT. WILL ENDORSE TO NEXT SHIFT NURSE
[2022-06-11 20:00] VITALS: BP 132/70
--- NOTE | 2022-06-11 20:07 | NUR ---
RECEIVED PATIENT IN BED, AWAKE, ALERT, ORIENTED X 4. NO RESPIRATORY DISTRESS NOTED. BREATHING EVEN AND UNLABORED. ON RA WITH OXYGEN SATURATION OF 99%. SR ON TELE MONITOR WITH HR OF 70-80'S. SALINE LOCK ON LEFT ANTECUBITAL AREA, PATENT, NO S/S OF INFILTRATION, FLUSHING WELL. NO DRIFTING NOTED ON BILATERAL ARMS AND LOWER LEGS, BILATERAL HANDS WITH GOOD HAND NIB ASSEMBLER, FACE EVEN AND SYMMETRICAL, NEURO CHECK DONE ORDERED. BED LOCKED AND IN LOWEST POSITION, CALL LIGHT WITHIN REACH AND INSTRUCTED TO CALL FOR ASSISTANCE WHEN NEEDED. WILL CONTINUE PLAN OF CARE.
[2022-06-11] MEDS: ENOXAPARIN SODIUM 40 MG/0.4 ML DISP.SYRIN SQ SCH (22:17)
[2022-06-11] MEDS: SIMVASTATIN 20 MG TABLET PO SCH (22:18)
[2022-06-12] VITALS: BP 108/64
[2022-06-12] MEDS: INSULIN REGULAR, HUMAN 100 UNIT/ML 3 ML VIAL SQ PRN (01:57)
[2022-06-12 04:00] VITALS: BP 100/61
--- NOTE | 2022-06-12 06:33 | NUR ---
PATIENT IN BED, ASLEEP. EASILY A WAKEN. ALERT, ORIENTED X 4. NO RESPIRATORY DISTRESS NOTED. BREATHING EVEN AND UNLABORED. ON RA WITH OXYGEN SATURATION OF 98%. SR ON TELE MONITOR WITH HR OF 70'S. SALINE LOCK ON LEFT ANTECUBITAL AREA, PATENT, NO S/S OF INFILTRATION, FLUSHING WELL. NO DRIFTING NOTED ON BILATERAL ARMS AND LOWER LEGS, BILATERAL HANDS WITH GOOD HAND VOLTAGE INSPECTOR, FACE EVEN AND SYMMETRICAL, NEURO CHECK DONE ORDERED. BED LOCKED AND IN LOWEST POSITION, CALL LIGHT WITHIN REACH AND INSTRUCTED TO CALL FOR ASSISTANCE WHEN NEEDED. WILL ENDORSE TO NEXT NURSE ON DUTY FOR CONTINUITY OF CARE.
--- NOTE | 2022-06-12 07:30 | NUR ---
telegraph installer opening note patient is alert and oriented x4. patient is on tele monitor currently sinus rhytm. patient is ambulatory with assist. patient has left ac lock. iv patent and flushing well. all sadfety measures in place. call light within reach.bed locked at lowest position. side rails up x2.
[2022-06-12 07:36] LABS: BASOPHILS % (AUTO) 0.7 % (0.0-2.0); EOSINOPHILS % (AUTO) 0.2 % (0.0-6.0); HEMATOCRIT 35 % (33-45); HEMOGLOBIN 11.9 g/dL (11.5-14.8); LYMPHOCYTES # (AUTO) 1.4 K/uL (0.8-4.8); LYMPHOCYTES % (AUTO) 53.6 % (20.0-44.0); MEAN CORPUSCULAR HGB CONC 34 g/dl (31.0-36.0); MEAN CORPUSCULAR VOLUME 89 fL (82-100); MONOCYTES # (AUTO) 0.4 K/uL (0.1-1.30); MONOCYTES % (AUTO) 15.8 % (2.0-12.0); NEUTROPHILS # (AUTO) 0.8 K/uL (1.8-8.9); NEUTROPHILS % (AUTO) 29.7 % (43.0-81.0); PLATELET COUNT (AUTO) 209 K/uL (150-450); RED BLOOD CELL COUNT(AUTO) 3.98 MIL/uL (4.0-5.2); WHITE BLOOD COUNT (AUTO) 2.6 K/uL (4.3-11.0)
[2022-06-12] MEDS: BLOOD SUGAR DIAGNOSTIC 1 EACH STRIP IN SCH ×2 (07:42→12:45)
[2022-06-12 07:43] LABS: CALCIUM, SERUM 8.3 mg/dL (8.5-10.1); CREATININE 0.8 mg/dL (0.6-1.3); MAGNESIUM 2.2 mg/dL (1.8-2.4); PHOSPHORUS 3.5 mg/dL (2.5-4.9); POTASSIUM 3.8 mmol/L (3.5-5.1)
[2022-06-12 08:00] VITALS: BP 111/59
[2022-06-12] MEDS: ESCITALOPRAM OXALATE (10 MG) 10 MG TABLET PO SCH (08:49)
[2022-06-12] MEDS: ASPIRIN EC 81 MG TABLET.DR PO SCH (08:49)
[2022-06-12] MEDS: TOPIRAMATE 100 MG TABLET PO SCH (08:49)
[2022-06-12] MEDS: LACOSAMIDE 50 MG TABLET PO SCH (08:50)
[2022-06-12] MEDS: FOLIC ACID 1 MG TABLET PO SCH (08:50)
[2022-06-12] MEDS: SERTRALINE HCL 50 MG TABLET PO SCH (08:51)
[2022-06-12] MEDS: PANTOPRAZOLE 40 MG TABLET.DR PO SCH (09:03)
[2022-06-12 10:05] LABS: BAND % (MANUAL) 1 % (0.0-5.0); BASOPHILS % (MANUAL) 1 % (0.0-2.0); LYMPHOCYTES % (MANUAL) 52 % (16-48); MONOCYTES % (MANUAL) 14 % (0-11.0); NEUTROPHILS % (MANUAL) 32 (42-76)
[2022-06-12] MEDS ORDERED: KEY,NONCONTROL,TO KEEP IN PYXI 1 EA MC ONE ×2 (10:26→16:46)
[2022-06-12] MEDS: CLOBAZAM 10 MG PO SCH (10:29)
--- NOTE | 2022-06-12 11:33 | NUR ---
SS consult requested over the weekend for code stroke. SW will follow up at a later time.
[2022-06-12 12:00] VITALS: BP 107/62
[2022-06-12] MEDS ORDERED: SIMV-46 PO (12:22)
[2022-06-12] MEDS ORDERED: ASPI-1169 PO (12:22)
[2022-06-12] MEDS: ACETAMINOPHEN 325 MG TABLET PO PRN (12:45)
--- NOTE | 2022-06-12 13:00 | NUR ---
pqtient has low grade fever 99.2, asked for tylenol
== END 2022-06-12 15:55 | disposition home or self-care (01) | DRG 69 ==
LOC: ER 18:59 → TELE1 06-10 02:32
PROVIDERS: ADMIT Student in an Organized Health Care Education/Training Program; ATTEND Student in an Organized Health Care Education/Training Program
DX: G45.9 Transient cerebral ischemic attack, unspecified (principal); U07.1 COVID-19; E87.1 Hypo-osmolality and hyponatremia; G40.909 Epilepsy, unspecified, not intractable, without status epilepticus; F41.0 Panic disorder [episodic paroxysmal anxiety]; F41.9 Anxiety disorder, unspecified; Z79.899 Other long term (current) drug therapy; Z86.16 Personal history of COVID-19; Z82.3 Family history of stroke; R91.1 Solitary pulmonary nodule; J98.8 Other specified respiratory disorders; I66.11 Occlusion and stenosis of right anterior cerebral artery; H53.2 Diplopia
CPT/HCPCS: 36415; 70450-TC; 70496-TC; 70498-TC; 70553-TC; 71045-TC; 80048-TC; 80061-TC; 80076-TC; 82962-TC; 83735-TC; 83880; 84100-TC; 84443-TC; 84484-TC; 85025-TC; 85652-TC; 85730-TC; 87081-TC; 92526; 92611-TC; 93307-TC; 93880-TC; 97116-TC; 97530-TC; A9575; C9803; G0378; J1200; J1650; J1815; Q9967